=== PATIENT | female | born 1990 | race African-American/Black ===

== ENCOUNTER 2016-09-15 07:21 | Emergency (ER) | payer MEDICAID, OTHER ==
[~2016-09-15] VITALS: Ht 154.9 cm; Wt 68.0 kg
[~2016-09-15 07:21] MED LIST: CYCL5TAB PO; NAPR250T57 PO; Z.0.NO CURRENT MEDS
[2016-09-15 07:23] VITALS: BP 139/76; PULSE 103; RESP 20; TEMP 98.8; O2SAT 98
[2016-09-15] MEDS ORDERED: IBUPROFEN 800 MG TAB PO ONE (08:15)
--- NOTE | 2016-09-15 08:18 | PD ---
HPI Chief Complaint: Cold / Flu Symptoms Time Seen by Provider: 08:13 Travel History International Travel<30 days: No Contact w/Intl Traveler<30days: No Traveled to known affect area: No History of Present Illness HPI 25-year-old female presents to the emergency Department with complaint of cough and nasal congestion since Wednesday. Reports body aches. Denies fever, chills. Reports vomiting secondary to cough exacerbations. Denies ear pain, throat pain. Denies chest pain, shortness of breath, abdominal pain. Denies wheezing. Has history of bronchitis, but denies history of asthma. Denies tobacco use. Has taken dahb-ypc-cztenhh medications with no relief of symptoms. Son is also sick with fever and nasal congestion. Denies allergies. No other modifying factors or associated signs and symptoms. PFSH Past Medical History Medical History: Denies Significant Hx ?: Not Social History Tobacco Use: No Allergies-Medications (Allergen,Severity, Reaction): Coded Allergies: No Known Allergies (Verified , 09/15/16) Reported Meds & Prescriptions Reported Meds & Active Scripts Active No Active Prescriptions or Reported Medications Review of Systems Except as stated in HPI: all other systems reviewed are Neg Physical Exam Narrative GENERAL: Well-nourished, well-developed female patient, in no acute distress; afebrile, nontoxic-appearing SKIN: Warm and dry. No rash. HEAD: Atraumatic. Normocephalic. EYES: Pupils equal and round at 3 mm with brisk reaction. No scleral icterus. No injection or drainage. PERRLA. ENT: Mucosa pink and moist. No erythema or exudates. No uvular edema. No uvular , palatal, or tonsillar deviation. Airway patent. Nasal turbinates appear normal without nasal blood, purulent drainage or septal hematoma. EARS: Bilateral pinnae and external canals appear within normal limits. Bilateral tympanic membranes without erythema, dullness or perforation. NECK: Trachea midline. No lymphadenopathy. CARDIOVASCULAR: Regular rate and rhythm. No murmur appreciated RESPIRATORY: No accessory muscle use. Clear to auscultation. Breath sounds equal bilaterally. GASTROINTESTINAL: Abdomen soft, non-tender, nondistended. Hepatic and splenic margins not palpable. Bowel sounds are active 4 quadrants. MUSCULOSKELETAL: No obvious deformities. No clubbing. No cyanosis. No edema. NEUROLOGICAL: Awake and alert. Oriented 3. No obvious cranial nerve deficits. Motor grossly within normal limits. Normal speech. Moves all extremities. 5/5 strength to all extremities. PSYCHIATRIC: Appropriate mood and affect; insight and judgment normal. Data Data Last Documented VS Vital Signs Date Time Temp Pulse Resp B/P Pulse Ox O2 Delivery O2 Flow Rate FiO2 09/15/16 07:23 98.8 103 20 139/76 98 Room Air Orders Influenzae A/B Antigen (09/15/16 08:03) Ibuprofen (Motrin) (09/15/16 08:15) [facility] Medical Decision Making Medical Screen Exam Complete: Yes Emergency Medical Condition: Yes Medical Record Reviewed: Yes Differential Diagnosis Viral illness, influenza, bronchitis Narrative Course 25-year-old female physical exam consistent with viral illness. Afebrile in the ER and nontoxic appearing. Denies fever at home. Patient has history of bronchitis. Lungs are clear and equal throughout. Patient is in no acute distress and without retractions or tachypnea. Oxygen saturation is 98% on room air. Influenza ordered. 0914: Influenza negative. Discussed viral illness and symptom treatment and patient verbalized understanding and agreement. Ibuprofen, Tessalon Perles, Nasonex nasal spray prescribed for home. Patient is medically cleared and stable for discharge. Discussed reasons to return to the emergency department. Instructed patient to follow up with primary care provider. Patient agrees with treatment plan. The patients vital signs are stable and the patient is stable for outpatient follow-up and treatment. Patient discharged home, stable and in no acute distress. Diagnosis Primary Impression: Viral illness Referrals: Primary Care Physician Patient Instructions: Cold Symptoms (ED), General Instructions, Safe Use of Cough and Cold Medicines (ED) Departure Forms: Tests/Procedures, Work Release Enter return to work date: Sep 17, 2016 Additional Instructions: Ibuprofen or Tylenol as directed and as needed to reduce fever/pain Lcko-gbq-vpkqwac antihistamines or decongestants as directed and as needed for symptom management Get plenty of sleep/rest Drink plenty of fluids to prevent dehydration [place] diet to encourage nutrition such as crackers, fruit, applesauce, toast, soup etc. Use an air humidifier/turn off ceiling fans Follow-up with your primary care provider within 1 day Return immediately to the emergency department with worsening of symptoms Med/Other Pt SpecificInfo: Prescription(s) given Scripts Ibuprofen 800 Mg [id number] Mg PO Q6HR PRN (PAIN) #30 TAB Ref 0 Prov:Krystle Apodaca PAPIER MACHE MOLDER 09/15/16 Benzonatate (Tessalon Perles)100 Mg [id number] Mg PO TID PRN (COUGH) #21 CAP Ref 0 Prov:Krystle Apodaca PAPIER MACHE MOLDER 09/15/16 Mometasone Nasal [place] (Nasonex Nasal [place])50 Mcg/Act Naspr2 [place] EACH NARE DAILY PRN (NASAL CONGESTION) #1 BOTTLE Ref 0 Prov:Krystle ApodacaP 09/15/16 Disposition: 01 DISCHARGE HOME Condition: Stable Krystle Apodaca Sep 15, 2016 08:18
[2016-09-15] MEDS ORDERED: MOME17I EACH NARE (09:16)
[2016-09-15] MEDS ORDERED: BENZ100 PO (09:16)
[2016-09-15] MEDS ORDERED: IBUP800T23 PO (09:16)
== END 2016-09-15 09:41 | disposition home or self-care (01) ==
LOC: NEPB 07:21
DX: B34.9 Viral infection, unspecified (principal); R05 Cough; R09.81 Nasal congestion; M79.1 Myalgia; R11.10 Vomiting, unspecified; Z87.09 Personal history of other diseases of the respiratory system
CPT/HCPCS: 87804; 99283

== ENCOUNTER 2017-09-22 13:44 | Emergency (ER) | payer MEDICAID ==
[~2017-09-22] VITALS: Ht 157.5 cm; Wt 71.5 kg
[~2017-09-22 13:44] MED LIST changes: +BENZ100 PO; -CYCL5TAB PO; +IBUP1TAB7 PO; +MOME17I EACH NARE; -NAPR250T57 PO; -Z.0.NO CURRENT MEDS
[2017-09-22 13:45] VITALS: BP 144/96; PULSE 93; RESP 18; TEMP 99.2; O2SAT 98
[2017-09-22 16:23] VITALS: BP 151/95
[2017-09-22] MEDS ORDERED: SODIUM CHLOR 0.9% 1000 ML INJ 1,000 ML IV ONE (16:57)
[2017-09-22] MEDS ORDERED: PROCHLORPERAZINE INJ 10 MG/2 ML VIAL IVP ONE (17:00)
[2017-09-22] MEDS ORDERED: diphenhydrAMINE HCL 50 MG/ML VIAL IVP ONE (17:00)
[2017-09-22] MEDS ORDERED: KETOROLAC TROMETHAMINE 30 MG/ML (IVP) VIAL IVP ONE (17:00)
[2017-09-22 17:29] VITALS: BP 138/86; RESP 15; O2SAT 99
--- NOTE | 2017-09-22 17:43 | PD ---
HPI Chief Complaint: Headache Time Seen by Provider: 16:45 Travel History International Travel<30 days: No Contact w/Intl Traveler<30days: No Traveled to known affect area: No History of Present Illness HPI 26-year-old female presents to the ED for evaluation a week long history of headache Rated 7/10, waxing and waning in quality. Located behind the eyes. Accompanied by blurred vision and photophobia. The patient denies previous history of headache. She endorses an episode of dizziness at work today. She states that she took her blood sugar was 94. She denies nausea vomiting, cold or flu symptoms, risk of . She states that she is otherwise healthy. She denies history of seasonal allergies. No treatment attempted at home. PFSH Past Medical History Medical History: Denies Significant Hx Diminished Hearing: No Immunizations Current: Yes Tetanus Vaccination: > 5 Years Influenza Vaccination: No ?: Unknown LMP: Irregular due to nexplanon Past Surgical History Surgical History: No Previous Surgery Social History Alcohol Use: Yes (OCCASIONALLY) Tobacco Use: No Substance Use: No Allergies-Medications (Allergen,Severity, Reaction): Coded Allergies: No Known Allergies (Verified Adverse Reaction, Unknown, 09/22/17) Reported Meds & Prescriptions Reported Meds & Active Scripts Active Ibuprofen 600 Mg Tab 600 Mg PO Q6H PRN Review of Systems Except as stated in HPI: all other systems reviewed are Neg Physical Exam Narrative GENERAL: Well-nourished, well-developed -Armenian female in no acute distress. SKIN: Warm and dry. HEAD: Normocephalic. Atraumatic. EYES: No scleral icterus. No injection or drainage. PERRLA. EOMI. ENT: [place] tympanic membranes bilaterally. Nasal mucosa is moist. Oropharynx without erythema, edema or exudate. NECK: Supple, trachea midline. No JVD or lymphadenopathy. CARDIOVASCULAR: Regular rate and rhythm without murmurs, gallops, or rubs. No carotid bruits. RESPIRATORY: Breath sounds clear and equal bilaterally. No accessory muscle use. GASTROINTESTINAL: Abdomen soft, non-tender, nondistended. + Bowel sounds MUSCULOSKELETAL: No cyanosis, or edema. Moves extremities spontaneously. NEUROLOGICAL: Awake and alert. Cranial nerves II through XII intact. Motor and sensory grossly within normal limits. Five out of 5 muscle strength in all muscle groups. Normal speech. BACK: Nontender without obvious deformity. No CVA tenderness. Data Data Last Documented VS Vital Signs Date Time Temp Pulse Resp B/P (MAP) Pulse Ox O2 Delivery O2 Flow Rate FiO2 09/22/17 19:16 64 18 144/77 (99) 100 Room Air 09/22/17 13:[address] Brain W/O Iv Contrast(Rout) (09/22/17 16:57) Ecg Monitoring (09/22/17 16:57) Iv Access Insert/Monitor (09/22/17 16:57) Oximetry (09/22/17 16:57) Ketorolac Inj (Toradol Inj) (09/22/17 17:00) Prochlorperazine Inj (Compazine Inj) (09/22/17 17:00) Diphenhydramine Inj (Benadryl Inj) (09/22/17 17:00) Sodium Chlor 0.9% 1000 Ml Inj (Ns 1000 M (09/22/17 16:57) Ed Urine Pregnancytest Poc (09/22/17 16:57) Ed Discharge Order (09/22/17 19:40) Acetaminophen (Tylenol) (09/22/17 19:45) MDM Medical Decision Making Medical Screen Exam Complete: Yes Emergency Medical Condition: Yes Differential Diagnosis Cephalgia versus ocular migraine versus allergic rhinitis versus sinus headache versus less likely ICH versus other Narrative Course 26-year-old female presents to the ED for evaluation a week long history of headache rated 7/10, waxing and waning, located behind the eyes. Accompanied by blurred vision and photophobia. The patient denies previous history of headache. She endorses an episode of dizziness at work today. Patient's hypertensive on presentation. Physical exam reveals a nontoxic-appearing -Armenian female in no acute distress. ENT exam is unremarkable no pain ocular movements. PERRLA. EOMI. No focal neuro deficits noted. IV was established. Patient was administered 1 L normal saline, Benadryl, Compazine and Toradol IV. CT of the brain reveals no acute abnormality per radiology read. On recheck the patient states that her headache has improved but not completely resolved. She drove herself to the hospital and therefore is not a candidate for narcotic pain medications. She is administered 650 Tylenol by mouth, observed in the ED for another 30 minutes. Patient states headache improved. She is instructed to follow-up with the [facility] for further evaluation of her headaches. She was provided a brief course of 600 mg ibuprofen as needed headache. She indicated understanding the instructions and is agreeable to care plan. She is stable and discharged home. Diagnosis Primary Impression: Cephalgia Qualified Codes: R51 - Headache Referrals: Primary Care Physician Patient Instructions: General Instructions, Ocular Migraine (ED) Additional Instructions: Rest, hydrate. Avoiding known stressors as possible. Take 600 mg ibuprofen at first sign of headache. Follow-up with your primary care provider for further evaluation of headaches should they recur. Return to the ED for worsening symptoms or any urgent or emergent medical condition. Med/Other Pt SpecificInfo: Prescription(s) given Scripts Ibuprofen (Ibuprofen) 600 Mg Tab 600 MG PO Q6H Y for HEADACHE, #15 TAB 0 Refills Prov: Kati Taylor MD 09/22/17 Disposition: 01 DISCHARGE HOME Condition: Stable Camille Jarrett Sep 22, 2017 17:43
[2017-09-22] MEDS ORDERED: IBUP-232 PO (17:44)
[2017-09-22 19:16] VITALS: BP 144/77; PULSE 64; RESP 18; O2SAT 100
--- NOTE | 2017-09-22 19:35 | RADRPT ---
EXAM DATE/TIME: 09/22/2017 19:23 [facility] COMPARISON: No previous studies available for comparison. INDICATIONS : Cephalgia, localized behind eyes. RADIATION DOSE: 35.82 CTDIvol (mGy) MEDICAL HISTORY : None SURGICAL HISTORY : None. ENCOUNTER: Initial ACUITY: 1 week PAIN SCALE: 7/10 LOCATION: cranial TECHNIQUE: Multiple contiguous axial images were obtained of the head. Using automated exposure control and adj ustment of the mA and/or kV according to patient size, radiation dose was kept as low as reasonably a chievable to obtain optimal diagnostic quality images. DICOM format image data is available electro nically for review and comparison. FINDINGS: CEREBRUM: The ventricles are normal for age. No evidence of midline shift, mass lesion, hemorrhage or acute in farction. No extra-axial fluid collections are seen. POSTERIOR FOSSA: The cerebellum and brainstem are intact. The 4th ventricle is midline. The cerebellopontine angle i s unremarkable. EXTRACRANIAL: The visualized portion of the orbits is intact. SKULL: The calvaria is intact. No evidence of skull fracture. CONCLUSION: No acute disease. Lm Mondragon MD on September 22, 2017 at 19:31 Board Certified Radiologist. This report was verified electronically.
[2017-09-22] MEDS ORDERED: ACETAMINOPHEN 325 MG TAB PO ONE (19:45)
== END 2017-09-22 20:42 | disposition home or self-care (01) ==
LOC: NEPE 13:44
DX: R51 Headache (principal); R42 Dizziness and giddiness; H53.8 Other visual disturbances
CPT/HCPCS: 70450; 84703; 96361; 96374; 96375; 99285; J0780; J1200; J1885; J7030